=== PATIENT | male | born 1940 | race African-American/Black ===

== ENCOUNTER 2019-11-17 14:08 | Emergency (ER) | payer OTHER ==
[~2019-11-17] VITALS: Ht 172.7 cm; Wt 95.3 kg
[~2019-11-17 14:08] MED LIST: ASPIR 8181 MG PO; ATORVASTATIN CA40 MG PO; AUGMENTIN 875875 MG PO; COREG6.25 MG PO; DIGOXIN250 MCG PO; FLOMAX0.4 MG PO; GLUCOPHAGE XR500 MG PO; KLOR-CON M2020 MEQ PO; LOTENSIN40 MG PO; LOTREL 5-40 MG1 EACH PO; MAXZIDE-25 MG1 EACH PO; METHYLPHENIDATE10 MG PO; NORCO 5-325 TA1 EACH PO; NORVASC10 MG PO; PRAVACHOL40 MG PO; PROSCAR 5MG TABL5 MG PO; TRAZODONE HCL100 MG PO; VIAGRA50 MG PO; ZOLOFT50 MG PO
[2019-11-17] MEDS ORDERED: MOBIC7.5 MG PO (16:41)
[2019-11-17] MEDS ORDERED: NORFLEX100 MG PO (16:41)
[2019-11-17 17:47] VITALS: BP 132/80
== END 2019-11-17 17:47 | disposition home or self-care (01) ==
LOC: ER 14:08
DX: S39.012A Strain of muscle, fascia and tendon of lower back, initial encounter (principal); I10 Essential (primary) hypertension; E11.9 Type 2 diabetes mellitus without complications; E78.00 Pure hypercholesterolemia, unspecified; F90.9 Attention-deficit hyperactivity disorder, unspecified type; X58.XXXA Exposure to other specified factors, initial encounter; Y92.89 Other specified places as the place of occurrence of the external cause; Y93.89 Activity, other specified; Y99.8 Other external cause status